=== PATIENT | male | born 1955 | race Caucasian/White ===

== ENCOUNTER 2017-01-15 15:39 | Inpatient (IN) | payer OTHER ==
[~2017-01-15] VITALS: Ht 170.2 cm; Wt 107.1 kg
[~2017-01-15 15:39] MED LIST: AMLO10TA2 PO; ASPI-630 PO; CEPH-264 PO; FURO-68 PO; METO50TA29 PO; TRIA1TAB5 PO
[2017-01-15] MEDS ORDERED: IPRATRPIUM/ALBUTEROL 0.5/2.5MG 3 ML NEBU. NEB ONE (16:00)
[2017-01-15 16:24] LABS: BASO # 0.1 x10^3/uL (0.0-0.2); BASO % 1 % (0-3); EOS % 1 % (0-3); HEMATOCRIT 47.3 % (39.0-53.0); HEMOGLOBIN 15.8 g/dL (13.0-17.5); LYMPH # 1.3 x10^3/uL (1.0-4.8); LYMPH % 14 % (24-48); MEAN CORPUSCULAR HEMOGLOBIN 32 pg (25-35); MEAN CORPUSCULAR HGB CONC 33 g/dL (31-37); MEAN CORPUSCULAR VOLUME 97 fL (79-100); MONO # 0.9 x10^3/uL (0.0-1.1); MONO % 10 % (0-9); NEUT # 7.2 x10^3uL (1.8-7.7); NEUT % 75 % (31-73); PLATELET COUNT 309 x10^3/uL (140-400); RED CELL DISTRIBUTION WIDTH 15.5 % (11.5-14.5); WHITE BLOOD COUNT 9.6 x10^3/uL (4.0-11.0)
[2017-01-15 16:36] LABS: ALBUMIN 3.1 g/dL (3.4-5.0); ALBUMIN/GLOBULIN RATIO 0.8 (1.0-1.7); CALCIUM 8.6 mg/dL (8.5-10.1); CREATININE 1.2 mg/dL (0.7-1.3); GFR 61.1; MAGNESIUM 2.2 mg/dL (1.8-2.4); POTASSIUM 4.5 mmol/L (3.5-5.1); TOTAL BILIRUBIN 0.9 mg/dL (0.2-1.0)
[2017-01-15 16:37] LABS: BGAS PH 7.4 (7.35-7.46)
[2017-01-15] MEDS ORDERED: PIPERACILLIN/TAZOBACTAM 3.375 GM VIAL IV ONE (16:44)
[2017-01-15] MEDS ORDERED: IV NORMAL SALINE 50ML 50 ML ONE (16:44)
[2017-01-15] MEDS ORDERED: VANCOMYCIN 1 GM in IV NORMAL SALINE 250ML 250 ML IV ONE (16:45)
[2017-01-15] MEDS ORDERED: IV NORMAL SALINE 1,000ML 1,000 ML IV ONE ×2 (16:45)
[2017-01-15] MEDS ORDERED: methylPREDNISolone SOD SUCC PF 125 MG/2 ML VIAL. IV ONE (16:45)
[2017-01-15] MEDS ORDERED: PIPERACILLIN/TAZOBACTAM 3.375 GM in IV NORMAL SALINE 50ML 50 ML IV ONE (16:45)
[2017-01-15] MEDS ORDERED: VANCOMYCIN 2 GM in IV NORMAL SALINE 500ML 500 ML IV ONE (17:00)
[2017-01-15 17:08] LABS: BGAS PH 7.36 (7.35-7.46)
--- NOTE | 2017-01-15 17:15 | EKG ---
[address] [address] Test Date: 2017-01-15 Test Time: 16:16:52 Pat Name: BANDAR KANG Department: Room: Gender: M Manager Air: DELMER : 1955 Requested By: GREGORY KEARNS Order Number: [id number] Reading MD: Measurements Intervals [place] Rate: 97 P: 59 AR: 186 QRS: 69 QRSD: 110 T: 62 QT: 382 QTc: 490 Interpretive Statements SINUS RHYTHM INCOMPLETE RIGHT BUNDLE BRANCH BLOCK QRS(T) CONTOUR ABNORMALITY CONSIDER ANTEROLATERAL MYOCARDIAL DAMAGE T ABNORMALITY IN ANTERIOR LEADS PROLONGED QT ABNORMAL ECG RI6.01 Unconfirmed report No previous ECG available for comparison
--- NOTE | 2017-01-15 17:25 | PHYS DOC ---
Past History Past Medical History: Hypertension Past Surgical History: No Surgical History Smoking: Quit Less Than 1 Year Alcohol Use: Occasionally Drug Use: None Adult General Chief Complaint Chief Complaint: SHORTNESS OF BREATH HPI HPI Patient is a [61] year old [male] who presents with [shortness of breath]. History taking from patient . Patient has had nonproductive cough and shortness of breath for the last 2 weeks that gradually getting worse and was confused and hallucinating for the last couple days with ark colored urine and generalized weakness. Patient had O2 sats of 43% upon arrival to ER without severe respiratory distress. Patient denies chest pain, focal neuro deficit, vomiting and diarrhea. Review of Systems Review of Systems Constitutional: Denies fever or chills [] Eyes: Denies change in visual acuity, redness, or eye pain [] HENT: Denies nasal congestion or sore throat [] Respiratory: Reports cough and shortness of breath [] Cardiovascular: No additional information not addressed in HPI [] GI: Denies abdominal pain, nausea, vomiting, bloody stools or diarrhea [] : Denies dysuria or hematuria [] Musculoskeletal: Denies back pain or joint pain [] Integument: Denies rash or skin lesions [] Neurologic: Denies headache, focal weakness or sensory changes, post confusion and hallucination [] Endocrine: Denies polyuria or polydipsia, reports dark urine All other systems were reviewed and found to be within normal limits, except as documented in this note. Current Medications Current Medications Current Medications Medications (Trade) Dose Ordered Sig/Mary Jo Start Time Stop Time Status Last Admin Dose Admin Albuterol/ Ipratropium (Duoneb) 3 ml 1X ONCE 01/15/17 16:00 01/15/17 16:06 DC Methylprednisolone Sodium Succinate (SOLU-Medrol 125MG VIAL) 125 mg 1X ONCE 01/15/17 16:45 01/15/17 16:46 DC Piperacillin Sod/ Tazobactam Sod (Zosyn) 3.375 gm STK-MED ONCE 01/15/17 16:44 01/15/17 16:45 DC Piperacillin Sod/ Tazobactam Sod 3.375 gm/Sodium Chloride 50 ml @ 100 mls/hr 1X ONCE 01/15/17 16:45 01/15/17 17:14 DC Sodium Chloride 50 ml @ As Directed STK-MED ONCE 01/15/17 16:44 01/15/17 16:45 DC Vancomycin HCl 1 gm/Sodium Chloride 250 ml @ 250 mls/hr 1X ONCE 01/15/17 16:45 01/15/17 16:45 DC Vancomycin HCl 2 gm/Sodium Chloride 500 ml @ 250 mls/hr 1X ONCE 01/15/17 17:00 01/15/17 18:59 Allergies Allergies Allergies Coded Allergies Type Severity Reaction Last Updated Verified No Known Drug Allergies 07/20/15 No Physical Exam Physical Exam Constitutional: Well developed, well nourished, no acute distress, non-toxic appearance. [] HENT: Normocephalic, atraumatic, bilateral external ears normal, oropharynx moist, no oral exudates, nose normal. [] Eyes: PERRLA, EOMI, conjunctiva normal, no discharge. [] Neck: Normal range of motion, no tenderness, supple, no stridor. [] Cardiovascular:Heart rate regular rhythm, no murmur [] Lungs & Thorax: Bilateral breath sounds clear to auscultation [] Abdomen: Bowel sounds normal, soft, no tenderness, no masses, no pulsatile masses. [] Skin: Warm, dry, no erythema, no rash. [] Back: No tenderness, no CVA tenderness. [] Extremities: No tenderness, no cyanosis, no clubbing, ROM intact, no edema. [] Neurologic: Alert and oriented X 3, normal motor function, normal sensory function, no focal deficits noted. [] Psychologic: Affect normal, judgement normal, mood normal. [] Current Patient Data Vital Signs Vital Signs Date Time Temp Pulse Resp B/P (MAP) Pulse Ox O2 Delivery O2 Flow Rate FiO2 01/15/17 16:50 100 BiPAP/CPAP Lab Results Laboratory Tests Test 01/15/17 15:50 01/15/17 15:56 01/15/17 16:00 01/15/17 16:40 Blood pH 7.40 (7.35-7.46) 7.36 (7.35-7.46) Blood Gas PCO2 62 mmHg (35-46) *H 76 mmHg (35-46) *H Blood Gas PO2 26 mmHg (80-100) *L 141 mmHg (80-100) H Blood Gas HCO3 38 mmol/L (21-28) H 42 mmol/L (21-28) H Arterial Bld O2 Saturation (Calc) 44 % (92-99) L 99 % (92-99) FiO2 21 % 100 % White Blood Count 9.6 x10^3/uL (4.0-11.0) Red Blood Count 4.90 x10^6/uL (4.30-5.70) Hemoglobin 15.8 g/dL (13.0-17.5) Hematocrit 47.3 % (39.0-53.0) Mean Corpuscular Volume 97 fL (79-100) Mean Corpuscular Hemoglobin 32 pg (25-35) Mean Corpuscular Hemoglobin Concent 33 g/dL (31-37) Red Cell Distribution Width 15.5 % (11.5-14.5) H Platelet Count 309 x10^3/uL (140-400) Neutrophils (%) (Auto) 75 % (31-73) H Lymphocytes (%) (Auto) 14 % (24-48) L Monocytes (%) (Auto) 10 % (0-9) H Eosinophils (%) (Auto) 1 % (0-3) Basophils (%) (Auto) 1 % (0-3) Neutrophils # (Auto) 7.2 x10^3uL (1.8-7.7) Lymphocytes # (Auto) 1.3 x10^3/uL (1.0-4.8) Monocytes # (Auto) 0.9 x10^3/uL (0.0-1.1) Eosinophils # (Auto) 0.0 x10^3/uL (0.0-0.7) Basophils # (Auto) 0.1 x10^3/uL (0.0-0.2) Sodium Level 136 mmol/L (136-145) Potassium Level 4.5 mmol/L (3.5-5.1) Chloride Level 92 mmol/L (98-107) L Carbon Dioxide Level 39 mmol/L (21-32) H Anion Gap 5 (6-14) L Blood Urea Nitrogen 32 mg/dL (8-26) H Creatinine 1.2 mg/dL (0.7-1.3) Estimated GFR (Cockcroft-Gault) 61.1 BUN/Creatinine Ratio 27 (6-20) H Glucose Level 155 mg/dL (70-99) H Lactic Acid Level 3.1 mmol/L (0.4-2.0) H Calcium Level 8.6 mg/dL (8.5-10.1) Magnesium Level 2.2 mg/dL (1.8-2.4) Total Bilirubin 0.9 mg/dL (0.2-1.0) Aspartate Amino Transferase (AST) 19 U/L (15-37) Alanine Aminotransferase (ALT) 25 U/L (16-63) Alkaline Phosphatase 91 U/L (46-116) Creatine Kinase 136 U/L (39-308) Creatine Kinase MB (Mass) 3.7 ng/mL (0.0-3.6) H Creatine Kinase MB Relative Index 2.7 % (0-4) Troponin I Quantitative 0.055 ng/mL (0-0.055) KE-Dnk-R-Type Natriuretic Peptide 7164 pg/mL (0-124) H Total Protein 7.0 g/dL (6.4-8.2) Albumin 3.1 g/dL (3.4-5.0) L Albumin/Globulin Ratio 0.8 (1.0-1.7) L Lipase 159 U/L (73-393) Ammonia 14 mcmol/L (11-34) EKG EKG [EKG at 1616 showed sinus rhythm at rate of 97, right bundle branch block Poor R-wave practicing anterolateral leads Radiology/Procedures Radiology/Procedures [] Course & Med Decision Making Course & Med Decision Making Pertinent Labs and Imaging studies reviewed. (See chart for details) chest x- ray showed RLL infiltrate and increase of pulmonary marker [Evaluation of patient in ER showed 61-year-old male patient with history of previous smoking brought in because of shortness of breath and cough. Patient had mild respiratory distress with O2 sat of 43% at RA at arrival to ER that improved with 6 L of oxygen via nasal cannula and started on BiPAP improvement of O2 sat to 95%. Chest x-ray showed an infiltrate on CHF. Lactic acid was 3.1 and treatment for sepsis including IV fluids and Zosyn and vancomycin was started in ER. Patient condition improved and tolerated Bipap well while he was in ER. Patient's family requested to transfer patient to [facility] if needed transfer. Dr. Jimenez, patient's primary care physician informed at 1720 and he recommended to admit patient in this hospital at ICU and agreed with plan of care. Repeat lactic acid in 4 hour requested and was told will be ordered by [employer] as protocol. Dragon Disclaimer Dragon Disclaimer This electronic medical record was generated, in whole or in part, using a voice recognition dictation system. Departure Departure: Impression: Primary Impression: Acute respiratory disease Additional Impressions: Hypoxia Altered level of consciousness CAP (community acquired pneumonia) Elevated lactic acid level CHF (congestive heart failure) Hypercapnia Disposition: ADMITTED INPATIENT ([id number]) Condition: GUARDED Referrals: TIFFANIE JIMNEEZ MD (PCP) Critical Care Time Critical care time was [70] minutes exclusive of procedures. Problem Qualifiers GREGORY KEARNS MD Jan 15, 2017 17:25
[2017-01-15] MEDS ORDERED: IV NORMAL SALINE 1,000ML 1,000 ML IV SCH (17:26)
[2017-01-15 18:23] VITALS: BP 136/80
[2017-01-15 19:29] LABS: AMPHETAMINE/METHAMPHETAMINE NEG (NEG); BARBITURATES NEG (NEG); BENZODIAZEPINES NEG (NEG); CANNABINOIDS NEG (NEG); COCAINE NEG (NEG); METHADONE NEG (NEG); OPIATES NEG (NEG); PHENCYCLIDINE NEG (NEG)
[2017-01-15 19:32] VITALS: BP 151/85
[2017-01-15 19:34] LABS: BILIRUBIN,URINE NEG (NEG); CLARITY,URINE HAZY; COLOR,URINE YELLOW; GLUCOSE,URINE NEG (NEG)
[2017-01-15 19:35] LABS: BACTERIA,URINE 0 /HPF (0-FEW); GRANULAR CASTS,URINE FEW /HPF; NITRITE,URINE NEG (NEG); SQUAMOUS EPITHELIAL CELL,UR FEW /LPF; UROBILINOGEN,URINE 8 mg/dL (0.2 mg/dL)
[2017-01-15] MEDS ORDERED: CONTRAST GIVEN MC PRN (20:30)
[2017-01-15] MEDS ORDERED: IOHEXOL 300 MG/ML 75 ML VIAL. IV ONE (20:45)
[2017-01-15 21:21] VITALS: BP 132/82
--- NOTE | 2017-01-15 21:53 | RAD ---
CT CHEST WITH CONTRAST, PULMONARY ANGIOGRAM History: Elevated d-dimer, SOA. Comparison: None. Technique: Helical CT of the chest was performed after the administration of 75 cc of Omni 300 intravenous contrast according to PE protocol. Axial and coronal reconstructions were obtained. 3-D MIP images were constructed to better evaluate the pulmonary arteries. PQRS compliance statement: One or more of the following individualized dose reduction techniques were utilized for this examination: 1. Automated exposure control 2. Adjustment of the mA and/or kV according to patient size 3. Use of iterative reconstruction technique Findings: Pulmonary arteries are opacified, without evidence of main, lobar or proximal segmental pulmonary embolus. Distalmost segmental and subsegmental arteries are not well evaluated. Thoracic aorta is normal in caliber with atherosclerotic calcifications present. Heart is enlarged without pericardial effusion. Scattered mediastinal lymph nodes are present, likely reactive in nature. Small to moderate bilateral pleural effusions are present. Bibasilar consolidations are present, likely compressive atelectasis although overlying infiltrate is difficult to exclude. Mild interlobular septal thickening is seen, suggesting mild interstitial edema. Patchy and nodular opacities are present bilaterally, may represent an infectious or inflammatory etiology. No pneumothorax is present. Emphysematous changes are present. Central airways remain patent. Overlying soft tissues and visualized osseous structures demonstrate no acute or suspicious finding. Visualized upper abdomen demonstrates no acute process. Mild nodularity of the left adrenal gland is present. IMPRESSION: 1. No CT evidence of central pulmonary embolus. 2. Bilateral small to moderate pleural effusions with interstitial edema and cardiomegaly, may be related to congestive heart failure. 3. Bibasilar consolidations likely atelectasis although infiltrate is difficult to exclude. Mild patchy and nodular opacities within both lungs may represent components of edema although infiltrate is also considered. Likely reactive mediastinal adenopathy. Electronically signed by: Rosaura Mac MD (01/15/2017 9:50 PM) [facility]
[2017-01-15] MEDS ORDERED: MORPHINE SULFATE 2 MG/ML DISP.SYRIN. IV PRN (22:30)
[2017-01-15 22:40] VITALS: BP 150/85
[2017-01-15] MEDS ORDERED: METOPROLOL SUCC 24HR ER 50 MG TAB.ER.24H. PO SCH (23:30)
[2017-01-15] MEDS ORDERED: TRIAMTERENE/HCTZ 75/50MG TABLET. PO SCH (23:30)
[2017-01-15] MEDS ORDERED: PNEUMOCOCCAL VAX SCREEN. MC PRN (23:45)
[2017-01-15] MEDS: amLODIPine BESYLATE 10 MG TABLET PO SCH (23:51)
[2017-01-16] MEDS: PIPERACILLIN/TAZOBACTAM 3.375 GM in IV NORMAL SALINE 50ML 50 ML IV SCH ×2 (00:17→08:24)
[2017-01-16 01:05] VITALS: BP 128/66
[2017-01-16] MEDS ORDERED: LORazepam 2 MG/ML VIAL IV ONE (02:00)
[2017-01-16 02:15] LABS: BASO % 0 % (0-3); EOS % 0 % (0-3); HEMATOCRIT 46.4 % (39.0-53.0); HEMOGLOBIN 15.4 g/dL (13.0-17.5); LYMPH # 0.7 x10^3/uL (1.0-4.8); LYMPH % 8 % (24-48); MEAN CORPUSCULAR HEMOGLOBIN 32 pg (25-35); MEAN CORPUSCULAR HGB CONC 33 g/dL (31-37); MEAN CORPUSCULAR VOLUME 97 fL (79-100); MONO # 0.3 x10^3/uL (0.0-1.1); MONO % 3 % (0-9); NEUT # 7.8 x10^3uL (1.8-7.7); NEUT % 88 % (31-73); PLATELET COUNT 271 x10^3/uL (140-400); RED BLOOD COUNT 4.78 x10^6/uL (4.30-5.70); RED CELL DISTRIBUTION WIDTH 15.7 % (11.5-14.5); WHITE BLOOD COUNT 8.8 x10^3/uL (4.0-11.0)
[2017-01-16] MEDS: VANCOMYCIN PER PHARMACY MC PRN ×2 (02:17→02:28)
[2017-01-16 02:23] LABS: ALBUMIN 2.8 g/dL (3.4-5.0); ALBUMIN/GLOBULIN RATIO 0.6 (1.0-1.7); CREATININE 1.2 mg/dL (0.7-1.3); GFR 61.1; POTASSIUM 4.8 mmol/L (3.5-5.1); TOTAL BILIRUBIN 0.7 mg/dL (0.2-1.0); TOTAL PROTEIN 7.2 g/dL (6.4-8.2)
[2017-01-16] MEDS: FUROSEMIDE 40 MG/4 ML VIAL IVP SCH ×2 (02:47→09:13)
[2017-01-16 03:00] LABS: BGAS PH 7.23 (7.35-7.46)
[2017-01-16 03:02] LABS: BGAS PH 7.23 (7.35-7.46)
[2017-01-16 03:05] LABS: % BANDS 6 % (0-9); % BASOS 1 % (0-3); % LYMPHS 10 % (24-48); % MONOS 2 % (0-10); % SEGS 81 % (35-66); PLT ESTIMATE ADEQUATE (ADEQUATE)
[2017-01-16 03:06] LABS: NUCLEATED RBC 3
[2017-01-16] MEDS ORDERED: MORPHINE SULFATE 2 MG/ML DISP.SYRIN. IV PRN ×2 (03:30→22:30)
[2017-01-16 04:05] VITALS: BP 119/66
[2017-01-16] MEDS ORDERED: VANCOMYCIN 1.75 GM in IV NORMAL SALINE 500ML 500 ML IV SCH ×2 (05:00→17:00)
[2017-01-16] MEDS ORDERED: IPRATRPIUM/ALBUTEROL 0.5/2.5MG 3 ML NEBU. ONE (05:16)
[2017-01-16 05:38] VITALS: BP 124/70
[2017-01-16] MEDS ORDERED: methylPREDNISolone SOD SUCC PF 40 MG/ML VIAL. IV SCH ×2 (06:00→14:00)
[2017-01-16 06:45] LABS: BASO % 0 % (0-3); EOS % 0 % (0-3); HEMATOCRIT 43.6 % (39.0-53.0); HEMOGLOBIN 14.4 g/dL (13.0-17.5); LYMPH # 0.6 x10^3/uL (1.0-4.8); LYMPH % 8 % (24-48); MEAN CORPUSCULAR HEMOGLOBIN 32 pg (25-35); MEAN CORPUSCULAR HGB CONC 33 g/dL (31-37); MEAN CORPUSCULAR VOLUME 97 fL (79-100); MONO # 0.4 x10^3/uL (0.0-1.1); MONO % 5 % (0-9); NEUT # 7.2 x10^3uL (1.8-7.7); NEUT % 87 % (31-73); PLATELET COUNT 255 x10^3/uL (140-400); RED BLOOD COUNT 4.48 x10^6/uL (4.30-5.70); RED CELL DISTRIBUTION WIDTH 16.1 % (11.5-14.5); WHITE BLOOD COUNT 8.3 x10^3/uL (4.0-11.0)
[2017-01-16 07:02] LABS: ALBUMIN 2.7 g/dL (3.4-5.0); ALBUMIN/GLOBULIN RATIO 0.7 (1.0-1.7); CALCIUM 7.8 mg/dL (8.5-10.1); CREATININE 1.1 mg/dL (0.7-1.3); GFR 67.6; POTASSIUM 4.1 mmol/L (3.5-5.1); TOTAL BILIRUBIN 0.6 mg/dL (0.2-1.0); TOTAL PROTEIN 6.7 g/dL (6.4-8.2)
--- NOTE | 2017-01-16 07:16 | HP ---
ADMIT DATE: 01/15/2017 HISTORY OF PRESENT ILLNESS: A 61-year-old male, apparently been sick for the last week with a cough and congestion. The patient came in through the Emergency Room this evening and was noted to be in some respiratory distress, retaining CO2, placed on BiPAP. The patient was admitted to the ICU. Apparently, denied any chest pain, denied abdominal pain, denied any other major symptoms. Had had some nausea according to the , but has had none here. CTA demonstrated possible mild pleural effusion, some mild interstitial edema. The patient otherwise was admitted for acute respiratory failure, probable acute on top of chronic diastolic heart failure. PAST MEDICAL HISTORY: History of hypertension, COPD. FAMILY HISTORY: Positive for congestive heart failure. ALLERGIES: No known drug allergies. HOME MEDICATIONS: Norvasc 10 mg a day, aspirin 81, metoprolol 50 mg daily, and Maxzide 75. SOCIAL HISTORY: Unobtainable yet. REVIEW OF SYSTEMS: Unobtainable. The patient on BiPAP at the present time. PHYSICAL EXAMINATION: GENERAL: This is a heavyset white male in moderate amount of distress. VITAL SIGNS: Blood pressure 130/60, respiratory rate 20, pulse 97, afebrile. HEENT: The patient's head was atraumatic, normocephalic. Eyes: PERRLA without jaundice. Mouth and throat, on BiPAP is noted. NECK: Nothing significant there. LUNGS: Diminished, some crackles noted in the bases. CARDIOVASCULAR: Regular sinus rhythm, S1, S2. ABDOMEN: Soft, protuberant, nontender, no rebounding, no guarding. EXTREMITIES: +1 pitting edema. Pulses noted distally. NEUROLOGIC: Somewhat sedated and had some Ativan shortly before this exam. LABORATORY DATA: His labs show sodium and potassium of 136 and 4.5, BUN and creatinine stable at 32 and 1.2, glucose 155. His BNP elevated over 7000. Lipase was normal. Blood count was basically unremarkable. Urine unremarkable. He had an elevated D-dimer, but a CTA did not show any signs of a blood clot, although it did show possible infiltrative process and some atelectasis and emphysema. IMPRESSION: Acute respiratory failure, possible pneumonia of unspecified etiology, community acquired, congestive heart failure, probably acute diastolic, morbid obesity, hyperglycemia. The patient will be placed on IV antibiotic therapy, IV Lasix. He had an echocardiogram, Cardiology consult, and make further evaluation on him and some of these other tests are performed. TIFFANIE FISHER MD DR: SUNITHA/octavio JOB#: [id number] / [id number]
[2017-01-16] MEDS ORDERED: IV NORMAL SALINE 1,000ML 1,000 ML IV ONE (07:45)
[2017-01-16 08:00] VITALS: BP 112/64
[2017-01-16 08:00] LABS: BGAS PH 7.34 (7.35-7.46)
[2017-01-16] MEDS ORDERED: IPRATRPIUM/ALBUTEROL 0.5/2.5MG 3 ML NEBU. NEB SCH ×2 (08:00→12:00)
[2017-01-16] MEDS ORDERED: LACTULOSE 20 GM/30 ML SOLUTION. PO ONE (08:15)
[2017-01-16] MEDS ORDERED: NORMAL SALINE IV ONE (08:30)
[2017-01-16] MEDS ORDERED: THIAMINE IV ONE (08:30)
[2017-01-16] MEDS ORDERED: FOLIC ACID IV ONE (08:30)
--- NOTE | 2017-01-16 08:54 | RAD ---
PORTABLE CHEST 1V Clinical Indication: SOB Comparison: None. Technique: AP portable view of the chest is obtained. Findings: Bilateral opacities are present, left greater than right. There is blunting of the left costophrenic angle suggesting a component of pleural fluid. No pneumothorax is seen. Left cardiac silhouette is obscured, limiting evaluation for cardiomegaly. Visualized osseous structures and overlying soft tissues demonstrate no acute finding. IMPRESSION: Bibasilar opacities, may represent infiltrate. Probable left pleural fluid effusion.
[2017-01-16] MEDS ORDERED: ENOXAPARIN 40 MG/0.4 ML DISP.SYRIN. SQ SCH (09:00)
[2017-01-16] MEDS ORDERED: PNEUMOC CONJ VACC 23-VALENT 0.5 ML VIAL. VAX IM ONE (09:00)
[2017-01-16] MEDS ORDERED: TRIAMTERENE/HCTZ 75/50MG TABLET. PO SCH (09:00)
[2017-01-16] MEDS ORDERED: ASPIRIN 81 MG TAB.CHEW PO SCH (09:00)
[2017-01-16] MEDS ORDERED: LACTOBACILLUS RHAMNOSUS GG 1 CAPSULE. PO SCH ×2 (09:00→21:00)
[2017-01-16] MEDS ORDERED: amLODIPine BESYLATE 10 MG TABLET PO SCH (09:00)
[2017-01-16 09:06] VITALS: BP 131/71
[2017-01-16] MEDS: amLODIPine BESYLATE 10 MG TABLET PO SCH (09:14)
[2017-01-16 10:00] VITALS: BP 115/64
[2017-01-16] MEDS ORDERED: FUROSEMIDE 40 MG/4 ML VIAL IVP SCH (10:00)
[2017-01-16] MEDS ORDERED: PIPERACILLIN/TAZOBACTAM 3.375 GM in IV NORMAL SALINE 50ML 50 ML IV SCH (12:00)
[2017-01-16 15:11] LABS: HEMOGLOBIN A1C 5.9 % (4.8-5.6)
[2017-01-16] MEDS ORDERED: VANCOMYCIN PER PHARMACY MC PRN (17:00)
[2017-01-16] MEDS ORDERED: CONTRAST GIVEN MC PRN (20:30)
[2017-01-16] MEDS ORDERED: METOPROLOL SUCC 24HR ER 50 MG TAB.ER.24H. PO SCH ×2 (21:00)
[2017-01-17] MEDS ORDERED: MORPHINE SULFATE 2 MG/ML DISP.SYRIN. IV PRN (03:30)
[2017-01-17] MEDS ORDERED: NORMAL SALINE IV ONE (08:30)
[2017-01-17] MEDS ORDERED: FOLIC ACID IV ONE (08:30)
[2017-01-17] MEDS ORDERED: THIAMINE IV ONE (08:30)
[2017-01-17] MEDS ORDERED: amLODIPine BESYLATE 10 MG TABLET PO SCH (09:00)
[2017-01-17] MEDS ORDERED: ENOXAPARIN 40 MG/0.4 ML DISP.SYRIN. SQ SCH (09:00)
[2017-01-17] MEDS ORDERED: FUROSEMIDE 40 MG/4 ML VIAL IVP SCH (09:00)
[2017-01-17] MEDS ORDERED: ASPIRIN 81 MG TAB.CHEW PO SCH (09:00)
== END 2017-01-16 11:12 | disposition short-term general hospital (02) | DRG 189 ==
LOC: ER 15:39 → ICU 17:45
PROVIDERS: ADMIT Family Medicine; ATTEND Family Medicine
PROC: 5A09457 Assistance with Respiratory Ventilation, 24-96 Consecutive Hours, Continuous Positive Airway Pressure (ICD-10-PCS; principal; 2017-01-15)
DX: J96.01 Acute respiratory failure with hypoxia (principal); J18.9 Pneumonia, unspecified organism; I11.0 Hypertensive heart disease with heart failure; J44.0 Chronic obstructive pulmonary disease with (acute) lower respiratory infection; I50.32 Chronic diastolic (congestive) heart failure; R74.0 Nonspecific elevation of levels of transaminase and lactic acid dehydrogenase [LDH]; J96.02 Acute respiratory failure with hypercapnia; Z82.49 Family history of ischemic heart disease and other diseases of the circulatory system; Z87.891 Personal history of nicotine dependence
CPT/HCPCS: 36415; 36600; 71010; 71275; 80053; 80307; 81001; 82140; 82550; 82553; 82803; 83036; 83605; 83690; 83735; 83880; 84484; 85007; 85025; 85379; 85610; 85730; 87040; 87641; 93005; 94640; 94660; J1650; J1940; J2060; J2270; J2543; J2920; J2930; J3370; J7040; J7620; Q9967; G0479; J7030

== ENCOUNTER → 2017-08-23 | Outpatient (CLI) | payer OTHER ==
--- NOTE | 2017-08-23 16:07 | CARD ---
MR#: [id number] Date of Study: 08/23/2017 Ordering Physician: JERAD SURESH, Referring Physician: JERAD SURESH, Tech: Ashleigh Shrestha RICH APPROVED REPORT EXAM: Two-dimensional and M-mode echocardiogram with Doppler and color Doppler. Other Information Quality : Fair INDICATION Diastolic Heart Failure 2D DIMENSIONS RVDd3.5 (2.9-3.5cm)Left Atrium(2D)3.5 (1.6-4.0cm) IVSd0.9 (0.7-1.1cm)Aortic Root(2D)3.4 (2.0-3.7cm) LVDd5.1 (3.9-5.9cm)LVOT Diameter2.2 (1.8-2.4cm) PWd1.0 (0.7-1.1cm)LVDs3.7 (2.5-4.0cm) FS (%) 26.3 %SV62.7 ml Aortic Valve AoV Peak Rajiv.133.7cm/sAoV VTI23.9cm AO Peak GR.7.1mmHgLVOT Peak Rajiv.118.5cm/s LVOT VTI 22.76cmAO Mean GR.3mmHg TYRONE (VMAX)3.15mi8JDI (VTI)3.52cm2 Mitral Valve MV E Gyhqugpu31.5cm/sMV DECEL [id number] MV A Qsaurtgh493.1cm/sE/A Ratio0.9 Pulmonary Vein S1 Tqdiytcn86.1cm/sD2 Nejvxixy86.1cm/s LEFT VENTRICLE The left ventricle is normal size. There is normal left ventricular wall thickness. Left ventricle sy stolic function is normal. The Ejection Fraction is 50-55%. There is normal LV segmental wall motion. Transmitral Doppler flow pattern is Grade I-abnormal relaxation pattern. RIGHT VENTRICLE The right ventricle is normal size. The right ventricular systolic function is normal. ATRIA The left atrium size is normal. The right atrium size is normal. The interatrial septum is intact wit h no evidence for an atrial septal defect or patent foramen ovale as noted on 2-D or Doppler imaging. AORTIC VALVE The aortic valve is calcified but opens well. Doppler and Color Flow revealed no significant aortic r egurgitation. There is no significant aortic valvular stenosis. MITRAL VALVE The mitral valve is calcified but opens well. Posterior mitral annular calcification is mild. There i s no evidence of mitral valve prolapse. There is no mitral valve stenosis. Doppler and Color Flow rev ealed no mitral valve regurgitation noted. TRICUSPID VALVE The tricuspid valve is normal in structure and function. Doppler and Color Flow revealed no tricuspid valve regurgitation noted. There is no tricuspid valve stenosis. PULMONIC VALVE The pulmonic valve is not well visualized. Doppler and Color Flow revealed no pulmonic valvular regur gitation. There is no pulmonic valvular stenosis. GREAT VESSELS The aortic root is normal in size. The ascending aorta is mildly dilated at 3.6 cm. The IVC is normal in size and collapses >50% with inspiration. PERICARDIAL EFFUSION There is no evidence of significant pericardial effusion. Critical Notification Critical Value: No <Conclusion> The left ventricle is normal size. Left ventricle systolic function is normal. The Ejection Fraction is 50-55%. There is normal left ventricular wall thickness. There is no significant aortic valvular stenosis. Doppler and Color Flow revealed no significant aortic regurgitation. Doppler and Color Flow revealed no mitral valve regurgitation noted. Doppler and Color Flow revealed no tricuspid valve regurgitation noted. The ascending aorta is mildly dilated at 3.6 cm. Signed by : Laurent Cho MD Electronically Approved : 08/23/2017 16:06:59
== END | disposition home or self-care (01) ==
LOC: ECHO 14:01
PROVIDERS: ATTEND Internal Medicine Cardiovascular Disease
DX: I11.0 Hypertensive heart disease with heart failure (principal); I50.30 Unspecified diastolic (congestive) heart failure
CPT/HCPCS: 93306

== ENCOUNTER → 2018-01-06 | Outpatient (CLI) | payer OTHER ==
[~2018-01-06] MED LIST changes: -AMLO10TA2 PO; +AMLO10TA6 PO
--- NOTE | 2018-01-06 15:18 | RAD ---
Left lower extremity venous ultrasound, 01/06/2018: HISTORY: Left lower extremity swelling, pain and redness Duplex evaluation including grayscale, color flow and spectral Doppler analysis was performed. The femoral and popliteal veins show no filling defects to suggest DVT. The visualized calf veins are unremarkable. A mildly prominent left inguinal lymph node is noted measuring 11 x 24 x 38 mm. IMPRESSION: There is no sonographic evidence of deep vein thrombosis in the left lower extremity Electronically signed by: Junior Iglesias MD (01/06/2018 3:14 PM) [facility]
== END | disposition home or self-care (01) ==
LOC: US 14:07
PROVIDERS: ATTEND Family Medicine
DX: R22.42 Localized swelling, mass and lump, left lower limb (principal)
CPT/HCPCS: 93971

== ENCOUNTER 2019-09-07 14:59 | Inpatient (IN) | payer MEDICARE, OTHER ==
[~2019-09-07] VITALS: Ht 170.2 cm; Wt 105.0 kg
[~2019-09-07 14:59] MED LIST changes: -AMLO10TA6 PO; +AMLO10TA8 PO
--- NOTE | 2019-09-07 15:39 | PHYS DOC ---
Past History Past Medical History: Hypertension (PRITESH ANNA DO) Past Surgical History: No Surgical History (PRITESH ANNA DO) Smoking: Quit Less Than 1 Year Alcohol Use: Heavy Drug Use: None (PRITESH ANNA DO) General Adult EDM: Chief Complaint: SHORTNESS OF BREATH HPI: HPI: 63-year-old male presents via POV with shortness of breath. Patient has had a 3 to 4-day history of cough that is nonproductive. He also has had significant fatigue. His primary concern is the fatigue. The patient had an oxygen sat at home that was reported to be in the 50s. When he first arrived in the emergency room the we also found his oxygen to be in the 50s. He was merely put on oxygen. His saturation improved to 95% immediately. Patient was awake and able to talk to us the entire time. He tells me he feels okay except for the above symptoms. No known COVID-19 exposures. He lives at home alone. He is mostly been staying at home but has gone out on occasion. Denies fever chills. (PRITESH ANNA DO) Review of Systems: Review of Systems: Constitutional: Denies fever or chills Eyes: Denies change in visual acuity HENT: Denies nasal congestion or sore throat Respiratory: Severe shortness of breath Cardiovascular: Denies chest pain or edema GI: Denies abdominal pain, nausea, vomiting, bloody stools or diarrhea : Denies dysuria Musculoskeletal: Denies back pain or joint pain Integument: Denies rash Neurologic: Denies headache, focal weakness or sensory changes Endocrine: Denies polyuria or polydipsia Lymphatic: Denies swollen glands Psychiatric: Denies depression or anxiety (PRITESH ANNA DO) Heart Score: Risk Factors: Risk Factors: DM, Current or recent (<one month) smoker, HTN, HLP, family history of CAD, obesity. Risk Scores: Score 0 - 3: 2.5% MACE over next 6 weeks - Discharge Home Score 4 - 6: 20.3% MACE over next 6 weeks - Admit for Clinical Observation Score 7 - 10: 72.7% MACE over next 6 weeks - Early Invasive Strategies (PRITESH ANNA DO) Allergies: Allergies: Allergies Coded Allergies Type Severity Reaction Last Updated Verified No Known Drug Allergies 07/20/15 No (PRITESH ANNA DO) Physical Exam: PE: Constitutional: Well developed, obese, well nourished, mild acute distress subjectively, non-toxic appearance. [] HENT: Normocephalic, atraumatic, bilateral external ears normal, oropharynx moist, no oral exudates, nose normal. [] Eyes: PERRLA, EOMI, conjunctiva normal, no discharge. [] Neck: Normal range of motion, no tenderness, supple, no stridor. [] Cardiovascular:Heart rate regular rhythm, no murmur [] Lungs & Thorax: Bilateral breath sounds diminished but clear. [] Abdomen: Bowel sounds normal, soft, no tenderness, no masses, no pulsatile masses. [] Skin: Warm, dry, no erythema, no rash. [] Back: No tenderness, no CVA tenderness. [] Extremities: No tenderness, no cyanosis, no clubbing, ROM intact, no edema. [] Neurologic: Alert and oriented X 3, normal motor function, normal sensory function, no focal deficits noted. [] Psychologic: Affect normal, judgement normal, mood normal. [] (PRITESH ANNA DO) EKG: EKG: [] (PRITESH ANNA DO) Radiology/Procedures: Radiology/Procedures: [] (PRITESH ANNA DO) Course & Med Decision Making: Course & Med Decision Making Pertinent Labs and Imaging studies reviewed. (See chart for details) The patient's labs are unremarkable. His chest CT does have abnormal findings there are bilateral pleural effusions. Official read is not back yet. The patient has maintained an oxygen level above 93% the entire time he has been here. He is on 6 L. He has been awake and alert. I am signing the patient out to [id number]. She will determine the patient's final disposition. [] (PRITESH ANNA DO) Course & Med Decision Making Assumed care at checkout from Dr. Anna. At time of checkout CT angios pending . Patient does not have a pulmonary embolism, however he does have interstitial infiltrates with pleural effusions that is concerning for the novel coronavirus 19. I discussed the results with the patient who states his understanding. He will be admitted to his primary care physician here. (VERA MYRICK MD) Dragon Disclaimer: Dragon Disclaimer: This electronic medical record was generated, in whole or in part, using a voice recognition dictation system. (PRITESH ANNA DO) Departure Departure: Impression: Primary Impression: Shortness of breath Additional Impressions: Hypoxia Suspected 2019 novel coronavirus infection Disposition: ADMITTED INPATIENT Admitting Physician: Jc Fisher (VERA MYRICK MD) Condition: STABLE Referrals: JC FISHER MD (PCP) Justification of Admission: Justification of Admission: Justification of Admission Dx: Yes Respiratory Failure: Severe Resp Distress (PRITESH ANNA DO) Justification of Admission Dx: Yes (VERA MYRICK MD) PRITESH ANNA DO Sep 07, 2019 15:39 VERA MYRICK MD Sep 07, 2019 18:59
[2019-09-07] MEDS ORDERED: IV NORMAL SALINE 1,000ML 1,000 ML IV ONE (16:00)
[2019-09-07 17:02] LABS: BASO % 1 % (0-3); EOS % 0 % (0-3); HEMATOCRIT 51.9 % (39.0-53.0); HEMOGLOBIN 17.3 g/dL (13.0-17.5); LYMPH # 0.3 x10^3/uL (1.0-4.8); LYMPH % 7 % (24-48); MEAN CORPUSCULAR HEMOGLOBIN 32 pg (25-35); MEAN CORPUSCULAR HGB CONC 33 g/dL (31-37); MEAN CORPUSCULAR VOLUME 97 fL (79-100); MONO # 0.7 x10^3/uL (0.0-1.1); MONO % 13 % (0-9); NEUT % 80 % (31-73); PLATELET COUNT 164 x10^3/uL (140-400); RED BLOOD COUNT 5.35 x10^6/uL (4.30-5.70); RED CELL DISTRIBUTION WIDTH 14.4 % (11.5-14.5); WHITE BLOOD COUNT 5.1 x10^3/uL (4.0-11.0)
[2019-09-07 17:13] LABS: CALCIUM 8.7 mg/dL (8.5-10.1); CREATININE 0.8 mg/dL (0.7-1.3); POTASSIUM 4.3 mmol/L (3.5-5.1)
[2019-09-07 17:26] LABS: ALBUMIN 3.5 g/dL (3.4-5.0); ALBUMIN/GLOBULIN RATIO 0.9 (1.0-1.7); TOTAL BILIRUBIN 0.9 mg/dL (0.2-1.0); TOTAL PROTEIN 7.2 g/dL (6.4-8.2)
[2019-09-07] MEDS ORDERED: IOHEXOL 300 MG/ML 75 ML VIAL. IV ONE (17:30)
--- NOTE | 2019-09-07 17:48 | EKG ---
[address] [address] Test Date: 2019-09-07 Test Time: 16:12:33 Pat Name: BANDAR KANG Department: Room: Gender: M Clinical Nursing Assistant: DELMER : 1955 Requested By: PRITESH ANNA Order Number: [id number] Reading MD: Measurements Intervals [place] Rate: 85 P: 60 MD: 198 QRS: 88 QRSD: 106 T: 58 QT: 382 QTc: 460 Interpretive Statements SINUS RHYTHM ATRIAL PREMATURE COMPLEX(ES) INCOMPLETE RIGHT BUNDLE BRANCH BLOCK OTHERWISE NORMAL ECG RI6.02 No previous ECG available for comparison
--- NOTE | 2019-09-07 18:30 | RAD ---
Examination: CT CHEST W/CONTRAST History: Reason: suspected covid-19, severe SOB, O2 50s Comparison/Correlation: 01/15/2017 CTA of the chest Findings: Axial images of chest were obtained following IV contrast. Sagittal and coronal reformatted images were provided. Small bilateral pleural effusions are present. Bibasilar atelectatic consolidation is present. Right lateral basilar linear atelectasis is present. Interstitial edema or thickening of the lung sanchez noted. No enlarged thoracic lymph nodes. Nonenlarged superior mediastinal lymph nodes are present. Thoracic aortic contour is unremarkable. Saber-sheath trachea which may relate to COPD noted. Pulmonary hyperinflation is present. Coronary arterial calcifications are present. Radiodensities along the right upper abdomen noted between the pancreatic neck and the proximal duodenum. Bony structures are unremarkable. Impression: Small pleural effusions are present. Adjacent bibasilar atelectasis noted. Interstitial edema of the lung sanchez noted. COPD. PQRS Compliance Statement: One or more of the following individualized dose reduction techniques were utilized for this examination: 1. Automated exposure control 2. Adjustment of the mA and/or kV according to patient size 3. Use of iterative reconstruction technique Electronically signed by: Destin Ballard MD (09/07/2019 6:27 PM) [email or web address]
[2019-09-07 21:19] VITALS: BP 158/91
[2019-09-08] VITALS (8 sets, daily range): BP systolic 130–157; BP diastolic 66–89
[2019-09-08 07:36] LABS: CALCIUM 8.2 mg/dL (8.5-10.1); CREATININE 0.7 mg/dL (0.7-1.3); GFR 113.2; POTASSIUM 4.4 mmol/L (3.5-5.1)
[2019-09-08 07:38] LABS: BASO % 0 % (0-3); EOS % 0 % (0-3); HEMATOCRIT 51.2 % (39.0-53.0); LYMPH # 0.5 x10^3/uL (1.0-4.8); LYMPH % 9 % (24-48); MEAN CORPUSCULAR HEMOGLOBIN 33 pg (25-35); MEAN CORPUSCULAR HGB CONC 33 g/dL (31-37); MEAN CORPUSCULAR VOLUME 98 fL (79-100); MONO # 0.7 x10^3/uL (0.0-1.1); MONO % 12 % (0-9); NEUT # 4.7 x10^3uL (1.8-7.7); NEUT % 79 % (31-73); PLATELET COUNT 149 x10^3/uL (140-400); RED BLOOD COUNT 5.23 x10^6/uL (4.30-5.70); RED CELL DISTRIBUTION WIDTH 14.8 % (11.5-14.5); WHITE BLOOD COUNT 5.9 x10^3/uL (4.0-11.0)
[2019-09-08] MEDS ORDERED: HYDROXYCHLOROQUINE (PROGRAM) 200 MG TABLET PO SCH (10:00)
[2019-09-08] MEDS: LISINOPRIL 10 MG TABLET PO SCH (10:00)
[2019-09-08] MEDS: AZITHROMYCIN 250 MG TABLET. PO SCH (10:04)
[2019-09-08] MEDS: DEXAMETHASONE SOD PHOS 4 MG/ML VIAL. IVP SCH ×2 (10:04→22:32)
[2019-09-08] MEDS: amLODIPine BESYLATE 10 MG TABLET PO SCH (10:30)
[2019-09-08] MEDS ORDERED: FUROSEMIDE 20 MG/2 ML VIAL IVP SCH (10:30)
[2019-09-08] MEDS ORDERED: ZOLPIDEM 5 MG TABLET. PO PRN (10:45)
[2019-09-08] MEDS ORDERED: LOPERAMIDE 2 MG CAPSULE PO PRN (10:45)
[2019-09-08] MEDS ORDERED: ALBUTEROL SULFATE 8GM INHALER. INH PRN (10:45)
[2019-09-08 11:43] LABS: % ATYL 2 % (0-0); % BANDS 6 % (0-9); % LYMPHS 10 % (24-48); % MONOS 8 % (0-10); % MYELOS 1 % (0-0); % SEGS 73 % (35-66)
[2019-09-08 11:44] LABS: PLT ESTIMATE ADEQUATE (ADEQUATE)
[2019-09-08 11:46] LABS: POLYCHROMASIA PRESENT
[2019-09-08 12:48] LABS: BGAS PH 7.25 (7.35-7.46)
[2019-09-08] MEDS: ALBUTEROL SULFATE 8GM INHALER. INH SCH ×2 (17:05→21:00)
[2019-09-08] MEDS ORDERED: IV NORMAL SALINE 1,000ML 1,000 ML IV SCH (19:30)
[2019-09-08] MEDS ORDERED: BUDESONIDE 0.5 MG/2 ML NEBU NEB SCH (20:00)
[2019-09-08 20:16] LABS: BGAS PH 7.27 (7.35-7.46)
[2019-09-08] MEDS ORDERED: IPRATRPIUM/ALBUTEROL 0.5/2.5MG 3 ML NEBU. ONE (20:26)
[2019-09-08] MEDS ORDERED: diphenhydrAMINE 50 MG/ML VIAL IVP PRN (20:30)
[2019-09-08] MEDS ORDERED: HALOPERIDOL LACT 5 MG/ML VIAL. IM PRN (20:30)
[2019-09-08] MEDS: IPRATRPIUM/ALBUTEROL 0.5/2.5MG 3 ML NEBU. NEB SCH (20:30)
[2019-09-08] MEDS ORDERED: cloNIDine HCL 0.1 MG TABLET PO PRN (20:30)
[2019-09-08] MEDS ORDERED: METOPROLOL SUCC 24HR ER 50 MG TAB.ER.24H. PO SCH (21:00)
[2019-09-08] MEDS ORDERED: MVI, ADULT NO.4 WITH VIT K 10 ML, THIAMINE INJ 100 MG, FOLIC ACID INJ 1 MG in IV NORMAL... IV SCH ×4 (21:00)
[2019-09-08] MEDS ORDERED: THIAMINE 200 MG/2 ML VIAL. IV ONE (21:57)
[2019-09-08] MEDS ORDERED: MVI, ADULT NO.4 WITH VIT K 10 ML VIAL IV ONE (21:58)
[2019-09-09] VITALS (11 sets, daily range): BP systolic 124–169; BP diastolic 60–91
[2019-09-09] MEDS: IPRATRPIUM/ALBUTEROL 0.5/2.5MG 3 ML NEBU. NEB SCH (05:40)
[2019-09-09 05:52] LABS: BGAS PH 7.23 (7.35-7.46)
--- NOTE | 2019-09-09 06:50 | RAD ---
Chest AP portable at 0607: Reason for examination: Increased CO2. Comparison is made to previous study dated 01/15/2017. The heart size is normal. Mediastinum is unremarkable. Lung sanchez show chronic obscuring of the left hemidiaphragm which may reflect a small pleural effusion. Right lung field is clear. No acute bony abnormalities are seen. Impression: Hazy density obscuring the left hemidiaphragm and a pleural effusion cannot be excluded. Electronically signed by: Nataliya Nunes MD (09/09/2019 6:47 AM) [id number]
[2019-09-09 06:54] LABS: BASO % 0 % (0-3); EOS % 0 % (0-3); HEMATOCRIT 50.8 % (39.0-53.0); HEMOGLOBIN 16.6 g/dL (13.0-17.5); LYMPH # 0.3 x10^3/uL (1.0-4.8); LYMPH % 4 % (24-48); MEAN CORPUSCULAR HEMOGLOBIN 32 pg (25-35); MEAN CORPUSCULAR HGB CONC 33 g/dL (31-37); MEAN CORPUSCULAR VOLUME 99 fL (79-100); MONO # 0.3 x10^3/uL (0.0-1.1); MONO % 5 % (0-9); NEUT # 6.2 x10^3uL (1.8-7.7); NEUT % 91 % (31-73); PLATELET COUNT 147 x10^3/uL (140-400); RED BLOOD COUNT 5.15 x10^6/uL (4.30-5.70); RED CELL DISTRIBUTION WIDTH 14.9 % (11.5-14.5); WHITE BLOOD COUNT 6.8 x10^3/uL (4.0-11.0)
[2019-09-09] MEDS ORDERED: FUROSEMIDE 20 MG/2 ML VIAL IVP SCH (07:00)
[2019-09-09 07:14] LABS: ALBUMIN 3.2 g/dL (3.4-5.0); ALBUMIN/GLOBULIN RATIO 0.8 (1.0-1.7); CALCIUM 8.5 mg/dL (8.5-10.1); CREATININE 0.7 mg/dL (0.7-1.3); GFR 113.2; TOTAL BILIRUBIN 0.6 mg/dL (0.2-1.0)
[2019-09-09] MEDS: LISINOPRIL 10 MG TABLET PO SCH (08:06)
[2019-09-09] MEDS: AZITHROMYCIN 250 MG TABLET. PO SCH (08:07)
[2019-09-09] MEDS: amLODIPine BESYLATE 10 MG TABLET PO SCH (08:07)
[2019-09-09] MEDS ORDERED: LACTULOSE 20 GM/30 ML SOLUTION. PO SCH (09:00)
[2019-09-09] MEDS ORDERED: HYDROXYCHLOROQUINE (PROGRAM) 200 MG TABLET PO SCH (09:00)
[2019-09-09] MEDS ORDERED: ASPIRIN CHEWABLE 81 MG TABLET. PO SCH (09:00)
[2019-09-09] MEDS ORDERED: ENOXAPARIN 40 MG/0.4 ML SYRINGE. SQ SCH (09:00)
[2019-09-09] MEDS ORDERED: FUROSEMIDE 40 MG/4 ML VIAL IVP SCH (09:00)
[2019-09-09] MEDS ORDERED: DEXAMETHASONE SOD PHOS 4 MG/ML VIAL. IVP SCH (09:00)
[2019-09-09 09:05] LABS: MAGNESIUM 2.4 mg/dL (1.8-2.4)
[2019-09-09] MEDS: ALBUTEROL SULFATE 8GM INHALER. INH SCH (09:28)
[2019-09-09 10:04] LABS: PHOSPHORUS 3.7 mg/dL (2.6-4.7)
--- NOTE | 2019-09-09 10:05 | HP ---
ADMIT DATE: 09/07/2019 HISTORY OF PRESENT ILLNESS: A 63-year-old gentleman who for the last week or so has become increasingly short of breath, cough nonproductive, with also increase fatigue and weakness. The patient noted that his oxygen saturation at home was in the 50s. The patient in turn came in with some oxygen on and he was driven right up into the 90s. The patient otherwise has no known COVID-19 exposure and has been staying home, going out just occasionally. Denies fever, chills, nausea, vomiting nor chest pain. The patient was admitted for acute respiratory distress and further evaluation. COVID-19 results are pending. PAST MEDICAL HISTORY: Hypertension, COPD, pneumonia. FAMILY HISTORY: Mother had congestive heart failure. ALLERGIES: No known drug allergies. HOME MEDICATIONS: Primarily for his blood pressure; metoprolol 50, amlodipine 10, aspirin, triamterene/HCTZ. SOCIAL HISTORY: The patient denies smoking, alcohol or drug use. Full code. REVIEW OF SYSTEMS: Denies any headaches, visual change, blurred vision, double vision, except he did have a headache a few weeks ago. The patient otherwise notes increased shortness of breath, but no chest pain, no abdominal pain, no nausea, vomiting, melena, hematochezia, hematemesis and neurologically negative for any deficits anywhere in his neurovascular system. PHYSICAL EXAMINATION: GENERAL: The patient on exam is a pleasant gentleman. VITAL SIGNS: Blood pressure 150/80, respiratory rate 24, pulse 90, temperature 97.2. HEENT: The patient's head was atraumatic, normocephalic. Eyes: PERRLA without jaundice. The mouth and throat were normal. NECK: Supple without JVD, carotid bruits. No thyromegaly. LUNGS: Diminished throughout, poor movement of air, may be some crackles in the left lower lobe. CARDIOVASCULAR: Regular sinus rhythm, S1, S2, without murmur, rub, thrill, or extra heart sound. ABDOMEN: Soft, protuberant, nontender. No rebound or guarding. Positive bowel sounds. No hepatosplenomegaly was noted. EXTREMITIES: No clubbing, cyanosis. Trace edema. NEUROLOGIC: The patient is alert and oriented x 3. Speech fluent, spontaneous, appropriate. Cranial nerves 2-12 are grossly intact. LABORATORY DATA: Show sodium 133, 4.4, 39 and 1. BNP elevated at 356. Troponin negative. Albumins were good. CBC; 5.9, 17, 51 and platelets normal. IMPRESSION: Acute respiratory failure, acute respiratory distress, rule out COVID-19. The patient placed on hydroxychloroquine as well as dexamethasone, breathing inhaler, MDI 2 puffs 3 times a day and every 2 hours p.r.n. Also given IV Lasix. CT of the chest saw small pleural effusions are present, noted interstitial edema on the lung sanchez, so he probably does have mild acute on top of chronic diastolic heart failure. PLAN: We will go ahead and continue with IV Lasix and monitor his progression along that route as well. TIFFANIE FISHER MD DR: SUNITHA/octavio JOB#: [id number] / [id number]
--- NOTE | 2019-09-09 10:05 | PN ---
DATE: SUBJECTIVE: A 63-year-old male came in, increased shortness of breath, oxygen saturation in the 50 percentile range. He was having difficulty for 3-4 days prior to admission and his oxygen saturation least at home was reported at 50%. His drove him to the Emergency Room and he was placed on oxygen, came up to 95% immediately. The patient does drink at least a 6-pack of beer daily and there was concern of him going into alcohol withdrawal initially. ER physicians felt that the patient was probably having possibly a COVID-19 situation and was admitted to a unit to isolate him and also to monitor his hypoxia, although blood gases showed a situation of possibly combination of respiratory and metabolic acidosis. The patient yesterday had gone through some withdrawal. He was somewhat agitated and irritated, placed on a CIWA protocol, requiring some Ativan to him. He had a level of 7 there. Because of his retaining CO2, the patient was placed on a BiPAP machine with the settings of, his IPAP was 22, EPAP of 4 and rate of 25. The mask fit fairly good. Valdez catheter was placed because he desaturated whenever he moved around. The patient in turn is able to make sense. We were talking to him and I asked him where he wanted to be transferred to, he said [facility], but because of his increased retention of CO2 actually has gone up from the low 90s to a blood gas of 7.23 with a pCO2 up to 100, pO2 of 110, bicarbonate 42. ABG initially was 88, came up to 97, FiO2 of 50. The patient's electrolytes were basically stable. The patient was going to be transferred. PAST MEDICAL HISTORY: He has had a history of congestive heart failure, hypertension, and COPD. MEDICATIONS: Norvasc 10 mg daily, aspirin 81, metoprolol 50 and he is on Lasix 20 mg daily. Had an echocardiogram done in 08/2017 and at that time, his ejection fraction was 50-55% with left ventricular systolic function was normal. FAMILY HISTORY: History of heart failure, hypertension. SOCIAL HISTORY: The patient claims to drink a 6-pack of beer at night. His says he may be drinking more than that. He has a previous history of smoking, is a full code. Denies hard drug use. REVIEW OF SYSTEMS: The patient at times is coherent, other times is very confused, agitated and disoriented. He just says he is short of breath, but other than that, he denies chest pain, abdominal pain. Denies any nausea, vomiting, melena, hematochezia, hematemesis. Neurologically, except for his mental status, possible withdrawal from alcohol, he is doing reasonably well there. Moving all extremities well. Reflexes appear to be basically normal. In any case, on exam, is a pleasant white male, morbidly obese. Blood pressure 129/90, respiratory rate anywhere from 16-25, pulse 90, temperature 97.8, he is on 40% on his BiPAP. The patient otherwise is alert, although somnolent at times. The medications he is on include that of his aspirin. He is on Lovenox, Norvasc 10, Lasix, he is going to get 40 mg daily. He is on Zithromax and Rocephin. He also was placed on hydroxychloroquine at first and that has been discontinued. He is on breathing treatments of DuoNeb, ipratropium and albuterol 4 times a day, Prinivil 10, using lorazepam p.r.n., metoprolol XL 50 mg at bedtime and he has had injections of thiamine daily. ALLERGIES: No known allergies. OBJECTIVE: HEENT: Otherwise, head was atraumatic, normocephalic. Eyes: PERRL. The patient has a facemask on, seems to be fitting good, good seal there. NECK: Supple. LUNGS: Diminished throughout, some crackles in the bases, but otherwise seems to be basically clear. CARDIOVASCULAR: Regular sinus rhythm. GASTROINTESTINAL: Protuberant abdomen. EXTREMITIES: Without clubbing, cyanosis, nor edema. NEUROLOGIC: Arousable, he is alert when he is and talking presently. IMPRESSION: Respiratory and metabolic acidosis, alcoholism, withdrawal, probably mild pulmonary congestion, hypercarbia. LABORATORY DATA: Sodium and potassium 133 and 4.4, BUN and creatinine 12 and 0.7. Blood sugar 116. His labs from this morning are pending. Blood gas noted earlier. White count 5.9, hemoglobin 17, 51. He had 6% bands, which is normal in this lab and some other abnormal white blood cells noted on his smear. COVID-19 was negative. PLAN: Continue on BiPAP. He is on Rocephin and azithromycin. Continue on that IV Lasix and also because of his elevated CO2 and lack of progression or improvement, we will try to transfer him. He prefers to go to and we are making arrangements to go there now. TIFFANIE FISHER MD DR: SUNITHA/octavio JOB#: [id number] / [id number]
--- NOTE | 2019-09-19 12:33 | DS ---
DATE OF DISCHARGE: 09/09/2019 HOSPITAL COURSE: A 64-year-old male came in with increased shortness of breath. His blood gases showed a pCO2 of greater than 90. He was placed on a BiPAP, aggressive pulmonary toilet. His blood pressure was also elevated as 160/90, pulse anywhere in the 115 range, down to the 90s. The patient remained basically afebrile. COVID-19 was negative. He did have 1 temperature of 99.6. The patient had been placed on BiPAP and CPAP. He did not make much in the way of progress, so he was transferred per his request down to [facility]. Chest x-ray was unremarkable. A CT scan of the chest showed small pleural effusion, bibasilar atelectasis, possible interstitial edema. He was given IV Lasix without much success. His BNP was no higher than 356. Albumin was normal. Glucose 132. Sodium and potassium 130 and 4.2; BUN and creatinine of 14 and 0.7. Phosphorus 3.7, magnesium 2.4. Blood gas 7.23, pCO2 of 100, pO2 of 110, bicarbonate 42. Blood gas 97, FiO2 of 50. No known drug allergies. As noted, the patient was transferred down per his request since we do not have a prom burn off operator here. He wanted to go to and make further evaluation. IMPRESSION: Respiratory acidosis, acute on top of chronic exacerbation of chronic obstructive pulmonary disease, pleural effusion, essential hypertension. The patient was stable at the time of discharge. He was taken by EMS down to [facility] for an evaluation and admission by their prom burn off operator. The patient also was noted to have a drinking history and was placed on a CIWA protocol as well and Lovenox. TIFFANIE FISHER MD DR: SUNITHA/octavio JOB#: [id number] / [id number]
== END 2019-09-09 11:25 | disposition short-term general hospital (02) | DRG 291 ==
LOC: ER 14:59 → ICU 18:50 → UNDODISIN 09-09 11:25
PROVIDERS: ADMIT Family Medicine; ATTEND Family Medicine
PROC: 5A09357 Assistance with Respiratory Ventilation, Less than 24 Consecutive Hours, Continuous Positive Airway Pressure (ICD-10-PCS; principal; 2019-09-08)
PROC: 5A09357 Assistance with Respiratory Ventilation, Less than 24 Consecutive Hours, Continuous Positive Airway Pressure (ICD-10-PCS; 2019-09-09)
DX: I11.0 Hypertensive heart disease with heart failure (principal); J96.01 Acute respiratory failure with hypoxia; E87.4 Mixed disorder of acid-base balance; F10.239 Alcohol dependence with withdrawal, unspecified; J44.1 Chronic obstructive pulmonary disease with (acute) exacerbation; J90 Pleural effusion, not elsewhere classified; E87.2 Acidosis; I50.33 Acute on chronic diastolic (congestive) heart failure; Z20.828 Contact with and (suspected) exposure to other viral communicable diseases; Z82.49 Family history of ischemic heart disease and other diseases of the circulatory system; Z87.891 Personal history of nicotine dependence; Z79.899 Other long term (current) drug therapy; E66.01 Morbid (severe) obesity due to excess calories; Z68.36 Body mass index [BMI] 36.0-36.9, adult
CPT/HCPCS: 36415; 36600; 71045; 71260; 80048; 80053; 82140; 82550; 82803; 82977; 83605; 83735; 83880; 84100; 84443; 84484; 85007; 85025; 87040; 93005; 94640; 94660; 96360; J0456; J0696; J1100; J1650; J1940; J2060; J7613; Q9967; 99285-25; J7030; U0003-CS